=== PATIENT | male | born 1970 | race Hispanic/Latino ===

== ENCOUNTER 2017-07-26 18:18 | Emergency (ER) | payer OTHER ==
[~2017-07-26] VITALS: Ht 188 cm; Wt 100.7 kg
[~2017-07-26 18:18] MED LIST: NOHOMEMEDS; ODOR FREE GARL1 EACH PO
[2017-07-26 19:01] LABS: HEMATOCRIT 42.4 % (38.0-50.0); MCHC 35.4 G/DL (30.0-36.0); MCV 87.6 FL (86-99); PLATELET COUNT 219 K/uL (156-360); RBC DIS.WIDTH-CV 13.8 % (11.8-14.6); RBC DIS.WIDTH-SD 44.1 % (39-53); RED BLOOD COUNT 4.84 M/uL (4.00-5.50); WHITE BLOOD COUNT 6.9 K/uL (4.1-10.2)
[2017-07-26 19:09] LABS: CHLORIDE 106 mEq/L (99-109); POTASSIUM 4.3 mEq/L (3.7-5.4); SODIUM 142 mEq/L (136-147)
[2017-07-26 19:10] LABS: GLUCOSE 87 mg/dL (70-99)
[2017-07-26 19:14] LABS: CREATININE 1.3 mg/dL (0.6-1.3); GFR ESTIMATE (CALCULATED) > 59 mL/min/ (58.99-99999)
[2017-07-26 19:15] LABS: UREA NITROGEN (BUN) 18 mg/dL (9-23)
[2017-07-26 20:07] LABS: MAGNESIUM 2.4 mg/dL (1.3-2.7)
[2017-07-26 20:20] LABS: TROP-I INTERPRETATION NEGATIVE; TROPONIN-I < 0.01 ng/mL (0.0-0.30)
[2017-07-26 21:13] LABS: APPEARANCE CLEAR ((CLEAR)); BILIRUBIN NEGATIVE; BLOOD NEGATIVE; COLOR YELLOW ((YELLOW)); GLUCOSE (STRIP) NEGATIVE; KETONES NEGATIVE; LEUKOCYTES NEGATIVE; NITRITE NEGATIVE; PROTEIN (STRIP) NEGATIVE; SPECIFIC GRAVITY 1.026 (1.000-1.030); UROBILINOGEN 0.2 MG/DL (0.2-1.0)
[2017-07-26] MEDS ORDERED: FLONASE16 G1 BOTH NARES (22:01)
[2017-07-26] MEDS ORDERED: ANTIVERT25 MG PO (22:01)
[2017-07-26] MEDS ORDERED: MUCINEX D ER T1 EACH PO (22:01)
[2017-07-26 22:13] LABS: TROP-I INTERPRETATION NEGATIVE; TROPONIN-I < 0.01 ng/mL (0.0-0.30)
[2017-07-26 22:24] VITALS: BP 112/76
== END 2017-07-26 22:24 | disposition home or self-care (01) ==
LOC: EME 18:18
PROVIDERS: Physician Assistant
DX: H65.03 Acute serous otitis media, bilateral (principal); R42 Dizziness and giddiness; R07.9 Chest pain, unspecified
CPT/HCPCS: 71046; 80048; 81003; 83735; 84484; 85027; 93005; 99281; 99284

== ENCOUNTER 2017-08-27 14:00 | Emergency (ER) | payer OTHER ==
[~2017-08-27] VITALS: Ht 188 cm; Wt 102.2 kg
[~2017-08-27 14:00] MED LIST changes: +ANTIVERT25 MG PO; +FLONASE16 G1 BOTH NARES; +MUCINEX D ER T1 EACH PO
[2017-08-27 15:39] LABS: HEMATOCRIT 42.7 % (38.0-50.0); HEMOGLOBIN 15.2 G/DL (12.5-16.6); MCH 31.3 PG (29.0-34.0); MCHC 35.6 G/DL (30.0-36.0); MCV 87.9 FL (86-99); RBC DIS.WIDTH-CV 13.8 % (11.8-14.6); RBC DIS.WIDTH-SD 44.8 % (39-53); RED BLOOD COUNT 4.86 M/uL (4.00-5.50); WHITE BLOOD COUNT 7.4 K/uL (4.1-10.2)
[2017-08-27 15:52] LABS: CHLORIDE 106 mEq/L (99-109); SODIUM 140 mEq/L (136-147)
[2017-08-27 15:54] LABS: GLUCOSE 91 mg/dL (70-99)
[2017-08-27 15:58] LABS: CREATININE 1.1 mg/dL (0.6-1.3); GFR ESTIMATE (CALCULATED) > 59 mL/min/ (58.99-99999); UREA NITROGEN (BUN) 17 mg/dL (9-23)
[2017-08-27 16:32] LABS: TROP-I INTERPRETATION NEGATIVE; TROPONIN-I < 0.01 ng/mL (0.0-0.30)
[2017-08-27 16:37] LABS: PLATELET COUNT 233 K/uL (156-360)
[2017-08-27 19:10] LABS: TROP-I INTERPRETATION NEGATIVE; TROPONIN-I < 0.01 ng/mL (0.0-0.30)
[2017-08-27 20:00] VITALS: BP 126/94
== END 2017-08-27 20:00 | disposition home or self-care (01) ==
LOC: EME 14:00
PROVIDERS: Physician Assistant
DX: R07.9 Chest pain, unspecified (principal); R42 Dizziness and giddiness
CPT/HCPCS: 71046; 80048; 84484; 85027; 93005